=== PATIENT | female | born 1975 | race Caucasian/White ===

== ENCOUNTER 2019-07-26 08:51 | Day surgery (SDC) | payer OTHER ==
[~2019-07-26 08:51] MED LIST: Acetaminophen 500 MG Tab PO ONE; Bupivacaine 0.5%/EPINEPHrine 1:200,000 50 ML MDV ONE; Dexamethasone 4 MG/ML SDV ONE; Glycopyrrolate 0.2 MG/ML 5 ML MDV ONE; Neostigmine Methylsulfate 1 MG/ML 5 ML Syringe ONE; Ondansetron 4 MG/2 ML SDV ONE; Propofol 200 MG/20 ML SDV ONE; Rocuronium 50 MG/5 ML Vial ONE; Succinylcholine 200 MG/10 ML MDV ONE; fentaNYL 250 MCG/5 ML SDV ONE
[2019-07-26] MEDS: Dextrose 5%-Lactated Ringers 1,000 ML IV SCH ×3 (09:06→20:22)
[2019-07-26] MEDS ORDERED: Ropivacaine 46 ML, dexAMETHasone 8 MG, EPINEPHrine 0.4 MG, Sodium Chloride 0.9% 31.6 ML NERVRT SCH ×4 (09:45)
[2019-07-26] MEDS ORDERED: Ketamine 500 MG/5 ML MDV IV SCH (09:45)
[2019-07-26] MEDS: cefOXitin 2 GM in Sodium Chloride 0.9% 50 ML IV ONE ×2 (09:57→11:35)
[2019-07-26] MEDS ORDERED: fentaNYL 100 MCG/2 ML SDV ONE (10:06)
[2019-07-26] MEDS ORDERED: hydrOXYzine HCl 100 MG/2 ML SDV IM ONE (10:24)
[2019-07-26] MEDS ORDERED: fentaNYL 100 MCG/2 ML SDV IVPUSH ONE (10:53)
[2019-07-26] MEDS ORDERED: HYDROmorphone 1 MG/ML Syringe IV PRN (11:47)
[2019-07-26] MEDS ORDERED: Ondansetron 4 MG/2 ML SDV IVPUSH PRN (11:47)
[2019-07-26] MEDS ORDERED: HYDROmorphone 0.5 MG/0.5 ML Syringe IVPUSH PRN (11:47)
[2019-07-26] MEDS ORDERED: Rizatriptan 10 MG Tab.DIS PO PRN (11:48)
[2019-07-26] MEDS ORDERED: Pantoprazole 40 MG Vial IVPUSH SCH (14:00)
[2019-07-26] MEDS: cefOXitin 2 GM in Sodium Chloride 0.9% 50 ML IV SCH ×2 (15:30→21:41)
[2019-07-26] MEDS: Acetaminophen/HYDROcodone 325-5 MG Tab PO PRN ×2 (15:38→21:45)
[2019-07-27] MEDS: cefOXitin 2 GM in Sodium Chloride 0.9% 50 ML IV SCH ×2 (04:55→10:16)
[2019-07-27] MEDS: Dextrose 5%-Lactated Ringers 1,000 ML IV SCH (07:05)
[2019-07-27] MEDS: Acetaminophen/HYDROcodone 325-5 MG Tab PO PRN (10:14)
--- NOTE | 2019-07-29 11:41 | DISCH ---
FINAL DIAGNOSES: 1. Biliary dyskinesia associated with cholelithiasis. 2. Umbilical hernia. 3. Bariatric surgery status. 4. History of polycystic ovary syndrome. 5. History of migraines. OPERATIVE PROCEDURES: Done on 07/26/2019, diagnostic laparoscopy with, 1. Cholecystectomy. 2. Umbilical hernia repair. HOSPITAL COURSE: This is a 44-year-old female presenting with ongoing attacks of right upper quadrant pain. A CCK stimulated HIDA scan was obtained, which showed only very minimal filling of the gallbladder making it distinctly abnormal. The patient was therefore set up for a cholecystectomy, which was done on the date of the admission. Within the gallbladder, upon its removal, she was noted to have a very fine, sand-like collection of stones. The patient also had a small umbilical hernia, which was repaired concurrently. Postoperatively, no major problems were noted. Postoperative labs looked good this morning and JOSELINE drainage has been clear and will be able to be removed. She will be discharged home to continue home medications plus Iaeger 5/325 one tablet q.4 hours p.r.n. pain, #25. She will be following up with Mony Linares at [facility] in [place], on 08/06/2019, at 11 a.m.
--- NOTE | 2019-08-09 11:20 | OR ---
DATE OF PROCEDURE: 07/26/2019 SURGEON: Sergey Ji MD PREOPERATIVE DIAGNOSIS: Chronic cholecystitis associated with minimal filling of gallbladder on HIDA scan. POSTOPERATIVE DIAGNOSES: 1. Chronic cholecystitis associated with minimal filling of gallbladder on HIDA scan. 2. Umbilical hernia. OPERATIVE PROCEDURES: Diagnostic laparoscopy with: 1. Cholecystectomy (59596). 2. Umbilical hernia repair (74133). ANESTHESIA: General. LANDSCAPE DRAFTER: Mony Linares PA-C. INDICATIONS FOR PROCEDURE: This is a 44-year-old presenting with recurrent symptoms that are suggestive of biliary colic. A HIDA scan was obtained, which showed very minimal filling of the gallbladder indicating dysfunctional gallbladder. Plan is to treat her laparoscopically and, if necessary, open cholecystectomy. Potential risks of the procedure including bleeding, infection, and injury to underlying viscera, problems with stones migrating in the common bile duct requiring additional procedure for correction, as well as possibility of some persistent symptoms postoperatively were all reviewed, and the patient wishes to proceed. DETAILS OF PROCEDURE: The patient was taken to the operating room and placed in a supine position. After general endotracheal anesthesia was induced, the abdomen was prepped and draped. A transverse epigastric incision was initially made and carried down through the skin and subcutaneous tissue and the peritoneal cavity entered under direct vision with an Optiview trocar. Peritoneal cavity was inflated to 15 mmHg pressure with CO2. Laparoscope was reinserted. No underlying trocar insertion site injuries were seen. Transverse subumbilical incision was made. The patient was noted to have a small umbilical hernia containing some preperitoneal fat within it. The trocar was brought directly through the hernia with estimated fascial defect of around 8 mm. Additional 5 mm trocars were then placed in the right subcostal area and bilateral transversus abdominis plane blocks were then placed. The abdomen was inspected. The patient was noted to have a thick-walled, somewhat zhu- appearing gallbladder consistent with chronic cholecystitis with some omental adhesions, which were initially taken down with Harmonic scalpel. The gallbladder was then retracted anteriorly and laterally and dissection began on the gallbladder neck, continued around the gallbladder neck/cystic duct junction. The cystic duct/gallbladder junction was noted to be fairly friable and thick-walled, and it was felt there was significant risk of clips not holding well. Given this, this was encircled with Endo Stitch and divided distally with Harmonic scalpel. The artery was then taken with Harmonic scalpel as well. The gallbladder was then dissected off the gallbladder bed using the Harmonic scalpel as well and delivered through the epigastric trocar site containing some very tiny stones within it. The area of dissection was inspected. No bile leaks or problems with bleeding were noted. A drain was felt not to be necessary. At this point, the camera was brought back up to the epigastric site, and using the laparoscopic suture passer, several sutures of 0 Vicryl stitch were placed, orienting the closure of the umbilical hernia in a transverse orientation. Once these were in place, the remaining trocars were removed and peritoneal cavity deflated. The fascia at the epigastric site was closed with 0 Vicryl stitch as well, and after tiny umbilical hernia sutures, the skin incision sites were closed with 4-0 Vicryl and skin stitch and dressing applied. The patient was taken to the recovery room in satisfactory condition. Physician seed laboratory assistant, Moyn Linares, played an essential role in assisting in this case, helping to position the patient, retract structures as needed, as well as suturing and cutting sutures when indicated. Her presence improved patient safety and decreased operative time. Sergey Ji MD /[id number]
== END 2019-07-27 12:15 | disposition home or self-care (01) ==
LOC: JP.SDS 08:51 → JP.MS 10:40 → JP.SDS 07-27 12:15
PROVIDERS: ATTEND Surgery
DX: K80.10 Calculus of gallbladder with chronic cholecystitis without obstruction (principal); K82.8 Other specified diseases of gallbladder; K42.9 Umbilical hernia without obstruction or gangrene; G43.909 Migraine, unspecified, not intractable, without status migrainosus; Z98.84 Bariatric surgery status; Z87.42 Personal history of other diseases of the female genital tract; Z79.899 Other long term (current) drug therapy
CPT/HCPCS: 36415; 81025; 82247; 84075; 85025; 88304; A9270-GY; C9113; J0171; J0330; J0694; J1100; J2405; J2704; J2710; J2795; J3010; J3410; J3490; J7042; J7050

== ENCOUNTER 2020-08-25 09:12 | Day surgery (SDC) | payer OTHER ==
[2020-08-25] MEDS ORDERED: Lactated Ringers 1,000 ML IV ONE (09:30)
[2020-08-25] MEDS ORDERED: Cyanocobalamin (Vitamin B12) 1,000 MCG/ML SDV IM ONE (10:00)
[2020-08-25] MEDS ORDERED: Midazolam 1 MG/ML 2 ML SDV ONE (10:20)
[2020-08-25] MEDS ORDERED: fentaNYL 100 MCG/2 ML SDV ONE (10:20)
[2020-08-25] MEDS ORDERED: Propofol 200 MG/20 ML SDV ONE (10:20)
[2020-08-25] MEDS ORDERED: MVI, Adult with Vitamin K 10 ML, Thiamine 200 MG, Chromium/Copper/Mang/Selen/Zn 1 ML in... IV ONE ×4 (10:30)
[2020-08-25] MEDS: Glycopyrrolate 0.2 MG/ML 2 ML SDV IVPUSH ONE ×2 (10:32→11:52)
--- NOTE | 2020-09-02 15:15 | OR ---
DATE OF PROCEDURE: 08/25/2020 SURGEON: Sergey Ji MD PREOPERATIVE DIAGNOSIS: Epigastric pain, status post Lorri-en-Y gastric bypass. POSTOPERATIVE DIAGNOSIS: Marginal ulcer at gastrojejunostomy. PROCEDURE: Upper GI endoscopy with biopsies of gastric pouch for CLOtest. ANESTHESIA: IV sedation. INDICATIONS FOR PROCEDURE: A 45-year-old status post Lorri-en-Y gastric bypass in 2018. Recently, she did have some epigastric discomfort. She has been on Protonix now for 3 days and does feel that things are getting somewhat better. Plan is to proceed with upper endoscopy with biopsies as indicated. Potential risks including bleeding and perforation were discussed, and the patient wishes to proceed. DETAILS OF PROCEDURE: The patient was taken to the operating room, placed in a left lateral decubitus position. IV sedation was administered, after which the upper GI endoscope was passed orally through the length of esophagus into the gastric pouch, from there through the gastrojejunostomy roughly 20 cm into the Lorri limb. The only pathology is that of a marginal ulcer measuring about 1 cm located in the jejunum medially flushed with the gastrojejunostomy. This was covered with fibrinous exudate. They appeared to be probably healing. Biopsies were obtained from the gastric pouch and sent for CLOtest for H pylori and the procedure was then concluded. Plan will be to continue with Protonix probably for 3 months cycle. Should be following up with Mony Linares as arranged in October and is instructed to call in the interim if she has additional problems. Sergey Ji MD /[id number]
== END 2020-08-25 13:55 | disposition home or self-care (01) ==
LOC: JP.SDS 09:12
PROVIDERS: ATTEND Surgery
DX: K28.9 Gastrojejunal ulcer, unspecified as acute or chronic, without hemorrhage or perforation (principal); F32.9 Major depressive disorder, single episode, unspecified; E66.9 Obesity, unspecified; K90.9 Intestinal malabsorption, unspecified; Z98.84 Bariatric surgery status
CPT/HCPCS: 36415; 43239; 80053; 82150; 83690; 87081; J2250; J2704; J3010; J3411; J3420; J3490; J7120